=== PATIENT | female | born 1995 | race African-American/Black ===

== ENCOUNTER 2017-07-07 13:42 | Emergency (ER) | payer OTHER ==
[~2017-07-07 13:42] MED LIST: PREN1CAP12 PO
--- NOTE | 2017-07-07 14:30 | PD ---
HPI Chief Complaint Wants to be induced Date Seen: Jul 07, 2017 Time Seen: 14:00 (Juliocesar Ryan MD R2) Travel History International Travel<30 Days: No Contact w/Intl Traveler<30Days: No Known Affected Area: No (Juliocesar Ryan MD R2) History of Present Illness HPI Patient is a 22-year-old at 41 weeks and 0 days who presents with a desire to be induced. She gets her care with Mery Toledo. She reports that yesterday, she noticed some small leakage of fluid with spots of liquid in her underwear no big gush of fluid. She denies any contractions, vaginal bleeding. She reports movement. She says within the last week, she had her membranes stripped and had an ultrasound that showed a breech position. Last cervical check showed 2 cm of cervical dilation. Para: 2 : 3 (Juliocesar Ryan MD R2) History Past Medical History Medical History: Denies Significant Hx (Juliocesar Ryan MD R2) Obstetric History Obstetric History Patient is a . She reports that her first baby was born in 2012 at 40 weeks on December 08, 2012 with a 7 lbs. 10 oz. baby. She reports that her second was a full-term, delivered at 39 weeks and 6 days, vaginal delivery of a 7 lbs. 7 oz. baby girl on September 25, 2014. (Juliocesar Ryan MD R2) Past Surgical History Surgical History: No Previous Surgery (Juliocesar Ryan MD R2) Family History Family History: Negative (Juliocesar Ryan MD) Social History Narrative Social History Patient reports that she lives at home with her daughter. Alcohol Use: No Tobacco Use: Yes (patient reports smoking a quarter pack per day) Substance Abuse: No (Juliocesar Ryan MD R2) Allergies-Medications (Allergen,Severity, Reaction): Coded Allergies: No Known Allergies (Verified , 12/01/16) Home Meds Active Scripts W/O A W/ Fe Asparto G (Prenate Dha 18-0.6-0.4-300 mg)1 Cap Cap1 Cap PO DAILY #90 BOTTLE Ref 3 Prov:KyleBetzy CNM [employer] 12/01/16 Review of Systems General / Constitutional: No: Fever, Weight Gain, Chills, Other Eyes: No: Diploplia, Blurred Vision, Visual changes, Pain, Photophobia HENT: No: Headaches, Vertigo, Lightheadedness Cardiovascular: No: Irregular Rhythm, Chest Pain or Discomfort, Palpitations, Tachycardia, Syncope, Varicosities, Edema, Cyanosis Respiratory: No: Cough, Short of Breath, Other Gastrointestinal: No: Nausea, Vomiting, Diarrhea Genitourinary: No: Decreased Urinary Output, Oliguria Musculoskeletal: No: Limited ROM, Weakness, Cramping, Edema, Pain (Juliocesar Ryan MD R2) Physical Exam 137/76, 91, 98.3 Narrative GENERAL: Well-nourished, well-developed patient. SKIN: Warm and dry. HEAD: Normocephalic and atraumatic. EYES: No scleral icterus. No injection or drainage. ENT: No nasal drainage noted. Mucous membranes pink. Airway patent. NECK: Supple, trachea midline. No JVD. CARDIOVASCULAR: Regular rate and rhythm without murmurs, gallops, or rubs. RESPIRATORY: Breath sounds equal bilaterally. No accessory muscle use. ABDOMEN/GI: Abdomen soft, non-tender, bowel sounds present, no rebound, no guarding Gravid to 41 weeks size GENITOURINARY: External Genitalia: intact and normal in appearance Cervix: midposition Dilatation: 2cm Effacement: 50% Station: -2 Presentation: vertex, confirmed by bedside ultrasound Membranes: Intact Uterine Contractions: q3min FHT's: Category: Cat I Baseline: 140 Reactive: Reactive Variability: moderate Decels: none EXTREMITIES: No cyanosis or edema. BACK: Nontender without obvious deformity. NEUROLOGICAL: Awake and alert. Motor and sensory grossly within normal limits. Five out of 5 muscle strength in all muscle groups. Normal speech. (Juliocesar Ryan MD R2) Data Data Vital Signs Reviewed: Yes (Juliocesar Ryan MD R2) MDM Plan Patient is a 22-year-old at 41 weeks and 0 days who presents with a desire to be induced. Patient reported a small leakage of fluid, but was Amnisure negative. She had a recent ultrasound which showed breech position, but bedside ultrasound shows the baby is in vertex position. Last cervical check showed 2 cm dilation, per patient. Tocometry shows irregular contractions. 1. rule out labor - Amnisure negative, baby in vertex position. Cervical check shows 2 cm dilation 50% effacement, which is unchanged since last cervical check. Tocometry shows irregular contractions. Monitor vitals, labor status, heart rate, all reassuring Scheduled patient for induction of labor this coming Monday labs remarkable for last hemoglobin of 8.4 on 07/03/17 as well as GBS positive at that time; all other labs appear normal. s/d/w Dr. Loco (Juliocesar Ryan MD R2) Interpretation(s) Pt is not in labor. She is 41 weeks with Cat 1 FHR. Largest vertical pocket amniotic fluid pool measuring 6.1cm Plan is for discharge and to return for IOL 07-10-2017 Labor precautions reviewed (Reji Loco MD) Diagnosis Diagnosis: Primary Impression: Irregular contractions Additional Impressions: False labor False labor after 37 completed weeks of gestation False labor after 37 weeks of gestation without delivery False labor, antepartum Ruled Out: Amniotic fluid leaking Disposition: 01 DISCHARGE HOME Condition: Good Juliocesar Ryan MD R2 Jul 07, 2017 14:30 Reji Loco MD Jul 07, 2017 15:35
[2017-07-07 14:33] VITALS: BP 137/76; PULSE 91; RESP 20; TEMP 98.3
== END 2017-07-07 15:27 | disposition home or self-care (01) ==
LOC: HOBED 13:42
DX: O47.1 False labor at or after 37 completed weeks of gestation (principal); O99.333 Smoking (tobacco) complicating pregnancy, third trimester; Z3A.41 41 weeks gestation of pregnancy
CPT/HCPCS: 76815; 84112

== ENCOUNTER 2017-07-10 04:43 | Inpatient (IN) | payer OTHER ==
[~2017-07-10] VITALS: Ht 162.6 cm; Wt 83.9 kg
[2017-07-10] VITALS (131 sets, daily range): BP systolic 107–147; BP diastolic 42–107; PULSE 76–95; RESP 17–19; TEMP 97.5–98.3
[2017-07-10] MEDS ORDERED: PENICILLIN G POT 5,000,000 UNITS/NS 100 ML (Mini-Bag Plus) IV ONE ×2 (05:00)
[2017-07-10] MEDS ORDERED: LIDOCAINE HCL 1% 50 ML VIAL INFIL PRN (05:00)
[2017-07-10] MEDS ORDERED: LIDOCAINE HCL 1% 50 ML VIAL I-DERMAL PRN (05:00)
[2017-07-10] MEDS ORDERED: CITRIC ACID-SODIUM CITRATE LIQ 30 ML UDC PO SCH (05:00)
[2017-07-10] MEDS ORDERED: LACTATED RINGER'S 1000 ML IV SCH (05:00)
[2017-07-10] MEDS ORDERED: NS 500 ML BOLUS IV PRN (05:00)
[2017-07-10] MEDS ORDERED: NS 1000 ML IV PRN (05:00)
[2017-07-10] MEDS ORDERED: MINERAL OIL 10 ML VIAL TOPICAL PRN (05:00)
[2017-07-10] MEDS ORDERED: OXYTOCIN 30 UNITS 500ML PREMIX IV ONE (05:00)
[2017-07-10] MEDS ORDERED: LACTATED RINGER'S 1000 ML BOLUS IV PRN (05:00)
[2017-07-10] MEDS ORDERED: MISOPROSTOL 25 MCG SUPP - repeat dose VAGINAL PRN (05:15)
[2017-07-10] MEDS ORDERED: MISOPROSTOL 25 MCG SUPP VAGINAL ONE (05:15)
[2017-07-10 05:31] LABS: AUTOMATED NEUTROPHIL # 6.3 TH/MM3 (1.8-7.7); BASOPHIL % 0.3 % (0.0-2.0); EOSINOPHIL # 0.2 TH/MM3 (0-0.4); EOSINOPHIL % 2.3 % (0.0-4.0); HEMATOCRIT 26.3 % (35.0-46.0); HEMO FLAGS DIFF FINAL; LYMPH % 19.1 % (9.0-44.0); LYMPHOCYTE # 1.7 TH/MM3 (1.0-4.8); MEAN CELL VOLUME 83.6 FL (80.0-100.0); MEAN CORPUSCULAR HEMOGLOBIN 27.9 PG (27.0-34.0); MEAN CORPUSCULAR HGB CONC 33.3 % (32.0-36.0); MONO % 6.3 % (0.0-8.0); PLATELET COUNT 271 TH/MM3 (150-450); RED BLOOD COUNT 3.14 MIL/MM3 (4.00-5.30); RED CELL DISTRIBUTION WIDTH 14.9 % (11.6-17.2); WHITE BLOOD COUNT 8.8 TH/MM3 (4.0-11.0)
[2017-07-10 05:39] LABS: BACTERIA, URINE OCC /hpf; BLOOD, URINE NEG (NEG); GLUCOSE,URINE NEG (NEG); KETONE, URINE NEG (NEG); MUCUS URINE MANY /lpf (OCC); NITRITE,URINE NEG (NEG); SQUAMOUS EPITHELIAL CELL URINE 6 /hpf (0-5); URINE COLOR YELLOW (YELLW/STRAW)
[2017-07-10 05:41] LABS: COMMENT (UR) CULT NOT INDICATED; CULTURE IF INDICATED CULT NOT INDICATED
[2017-07-10] MEDS ORDERED: OXYTOCIN 30 UNITS/NS 500ML PREMIX IV SCH ×2 (05:45→10:30)
[2017-07-10 06:51] LABS: ALT (GPT) 11 U/L (9-42); ANION GAP 9 MEQ/L (5-15); AST (GOT) 9 U/L (16-38); BICARBONATE 21.9 MEQ/L (21.0-32.0); BLOOD UREA NITROGEN 5 MG/DL (7-18); CHLORIDE 105 MEQ/L (98-107); GLOMERULAR FILTRATION RATE 261 ML/MIN (>89); POTASSIUM 3.5 MEQ/L (3.5-5.1); SODIUM (NA) 136 MEQ/L (136-145)
[2017-07-10 06:54] LABS: ALKALINE PHOSPHATASE 236 U/L (45-117); TOTAL BILIRUBIN ADULT 0.2 MG/DL (0.2-1.0)
[2017-07-10] MEDS ORDERED: fentaNYL 2MCG-BUPIV 0.125% INJ 100 ML ONE (09:38)
--- NOTE | 2017-07-10 10:00 | HHI.HP ---
HPI Chief Complaint Induction of labor Date Seen: Jul 10, 2017 (Keesha Murillo MD, R3) Travel History International Travel<30 Days: No Contact w/Intl Traveler<30Days: No (Keesha Murillo MD, R3) History of Present Illness HPI Patient is a 22 year old at 41-2/7 weeks gestation who presents today for induction of labor. She denies any vaginal bleeding or discharge. No contractions. No gush or leaking of fluid. Positive movement. Poorly compliant with care. (Keesha Murillo MD, R3) History Past Medical History Medical History: Denies Significant Hx (Keesha Murillo MD, R3) Obstetric History Obstetric History s/p x 2 (Keesha Murillo MD, R3) Past Surgical History Surgical History: No Previous Surgery (Keesha Murillo MD, R3) Family History Family History: Negative (Keesha Murillo MD, R3) Social History Alcohol Use: No Tobacco Use: No Substance Abuse: No (Keesha Murillo MD, R3) Allergies-Medications (Allergen,Severity, Reaction): Coded Allergies: No Known Allergies (Verified , 12/01/16) Home Meds Active Scripts W/O A W/ Fe Asparto G (Prenate Dha 18-0.6-0.4-300 mg)1 Cap Cap1 Cap PO DAILY #90 BOTTLE Ref 3 Prov:Betzy Kyle CNM [employer] 12/01/16 Review of Systems Except as stated in HPI: all other systems reviewed are Neg General / Constitutional: No: Fever, Chills Eyes: No: Visual changes HENT: No: Headaches Cardiovascular: No: Chest Pain or Discomfort Respiratory: No: Short of Breath Gastrointestinal: No: Nausea, Vomiting Genitourinary: No: Dysuria, Pelvic Pain, Discharge, Vaginal Bleeding Musculoskeletal: No: Edema Psychiatric: No: Substance Abuse (Keesha Murillo MD, R3) Physical Exam Vital Signs Date Time Temp Pulse Resp B/P Pulse Ox O2 Delivery O2 Flow Rate FiO2 07/10/17 09:55 81 07/10/17 09:50 79 07/10/17 09:50 76 129/97 07/10/17 09:47 81 133/88 07/10/17 09:45 76 8/14/17 09:45 77 14/17 09:43 77 118/82 814/17 09:40 78 814/17 09:35 80 814/17 09:30 80 814/17 08:59 97.9 18 814/17 08:58 80 114/73 14/17 08:50 87 14/17 08:45 80 1417 08:40 84 1417 08:35 85 1417 08:25 92 1417 08:20 86 1417 08:15 87 14 08:10 86 07/10/17 08:05 84 07/10/17 08:00 82 14 07:55 85 1417 07:54 90 135/87 1417 07:53 18 1417 07:50 93 14/17 07:45 81 1417 07:40 81 1417 07:35 80 1417 07:30 80 1417 07:25 80 14/17 07:20 81 14/17 07:10 81 14/17 07:05 79 1417 07:03 97.8 18 1417 07:02 79 123/72 14/17 07:00 78 14/17 06:55 77 14/17 06:45 82 14/17 06:40 81 1417 06:35 81 1417 06:30 81 1417 06:25 79 1417 06:20 80 14/17 06:16 82 119/66 14/17 06:16 18 14/17 06:15 78 14/17 06:10 80 14/17 06:05 81 1417 06:00 80 1417 05:55 80 14/17 05:50 78 14/17 05:45 79 14/17 05:35 81 14/17 05:30 82 14/17 05:25 84 14/17 05:20 80 14/17 05:15 83 8/14/17 05:10 82 07/10/17 05:05 84 07/10/17 05:00 83 07/10/17 05:00 90 144/77 07/10/17 04:59 97.5 18 07/10/17 04:55 83 Narrative GENERAL: Well-nourished, well-developed patient. SKIN: Warm and dry. HEAD: Normocephalic and atraumatic. EYES: No scleral icterus. No injection or drainage. ENT: No nasal drainage noted. Mucous membranes pink. Airway patent. NECK: Supple, trachea midline. No JVD. CARDIOVASCULAR: Regular rate and rhythm without murmurs, gallops, or rubs. RESPIRATORY: Breath sounds equal bilaterally. No accessory muscle use. ABDOMEN/GI: Abdomen soft, non-tender, bowel sounds present, no rebound, no guarding Gravid to 41 weeks size GENITOURINARY: External Genitalia: intact and normal in appearance BUS glands: normal Cervix: position Dilatation: 3 Effacement: 70 Station: -2 Presentation: vertex Membranes: intact Uterine Contractions: irregular FHT's: Category: I Baseline: 140 Reactive: + Variability: moderate Decels: none EXTREMITIES: No cyanosis or edema. BACK: Nontender without obvious deformity. No CVA tenderness. NEUROLOGICAL: Awake and alert. Motor and sensory grossly within normal limits. Normal speech. (Keesha Murillo MD, R3) Data Data Vital Signs Reviewed: Yes Orders Admit To Inpatient (07/10/17 ) Vital Signs (Adult) .Per protocol (07/10/17 04:54) Activity Oob Ad Lizett (07/10/17 04:54) Heart (07/10/17 04:54) Amnioinfusion (07/10/17 04:54) Urinary Catheter Management .ONCE (07/10/17 04:54) Diet Liquid (07/10/17 Breakfast) Complete Blood Count With Diff (07/10/17 04:54) Hold Clot (07/10/17 04:54) Abo/Rh Blood Type (07/10/17 04:54) Urinalysis - C+S If Indicated (07/10/17 04:54) Rapid Plasma Regin (Rpr) W Ttr (07/10/17 04:54) Resp Oxygen Non Rebreathe Mask (07/10/17 ) ^ Epidural / Intrathecal Infus (07/10/17 04:54) Lactated Ringer's 1000 Ml Inj (Lr 1000 M (07/10/17 05:00) Lactated Ringer's 1000 Ml Inj (Lr 1000 M (07/10/17 05:00) Sodium Chlorid 0.9% 500 Ml Inj (Ns 500 M (07/10/17 05:00) Sodium Chlor 0.9% 1000 Ml Inj (Ns 1000 M (07/10/17 05:00) Lidocaine 1% Inj (50 Ml) (Xylocaine 1% I (07/10/17 05:00) Citric Acid-Sodium Citrate Liq (Bicitra (07/10/17 05:00) Fentanyl Inj (Fentanyl Inj) (07/10/17 05:00) Fentanyl Inj (Fentanyl Inj) (07/10/17 05:00) Penicillin G Potassium Inj (Pfizerpen-G (07/10/17 05:00) Penicillin G Potassium Inj (Pfizerpen-G (07/10/17 09:00) Oxytocin 30 Units-500ml Premix (Pitocin (07/10/17 05:00) Lidocaine 1% Inj (50 Ml) (Xylocaine 1% I (07/10/17 05:00) Light Mineral Oil (Muri-Lube Oil) (07/10/17 05:00) ^ Non Stress Test (07/10/17 05:01) Response To Medication .Post New Med Administration, Reaction (07/10/17 05:01) ^ Discontinue Medication (07/10/17 05:01) Oxytocin 30 Units-500ml Premix (Pitocin (07/10/17 05:45) Comprehensive Metabolic Panel (07/10/17 05:42) Fentanyl 2mcg-Bupiv 0.125% Inj (Fentanyl (07/10/17 09:38) Labs Laboratory Tests Test 07/10/17 07/10/17 04:57 05:07 Urine Color YELLOW Urine Turbidity HAZY Urine pH 7.0 Urine Specific Murphy 1.030 Urine Protein 30 Urine Glucose (UA) NEG Urine Ketones NEG Urine Occult Blood NEG Urine Nitrite NEG Urine Bilirubin NEG Urine Urobilinogen 2.0 Urine Leukocyte Esterase MOD Urine RBC 1 Urine WBC 2 Urine Squamous Epithelial 6 Cells Urine Bacteria OCC Urine Mucus MANY Microscopic Urinalysis Comment CULT NOT INDICATED White Blood Count 8.8 Red Blood Count 3.14 Hemoglobin 8.8 Hematocrit 26.3 Mean Corpuscular Volume 83.6 Mean Corpuscular Hemoglobin 27.9 Mean Corpuscular Hemoglobin 33.3 Concent Red Cell Distribution Width 14.9 Platelet Count 271 Mean Platelet Volume 8.2 Neutrophils (%) (Auto) 72.0 Lymphocytes (%) (Auto) 19.1 Monocytes (%) (Auto) 6.3 Eosinophils (%) (Auto) 2.3 Basophils (%) (Auto) 0.3 Neutrophils # (Auto) 6.3 Lymphocytes # (Auto) 1.7 Monocytes # (Auto) 0.6 Eosinophils # (Auto) 0.2 Basophils # (Auto) 0.0 CBC Comment DIFF FINAL Differential Comment Sodium Level 136 Potassium Level 3.5 Chloride Level 105 Carbon Dioxide Level 21.9 Anion Gap 9 Blood Urea Nitrogen 5 Creatinine 0.38 Estimat Glomerular Filtration 261 Rate Random Glucose 93 Calcium Level 8.2 Total Bilirubin 0.2 Aspartate Amino Transf 9 (AST/SGOT) Alanine Aminotransferase 11 (ALT/SGPT) Alkaline Phosphatase 236 Total Protein 7.2 Albumin 2.7 Blood Type O POSITIVE Band and Hold (Keesha Murillo MD, R3) Assessment/Plan Assessment and Plan 31 year old at 41-2/7 weeks gestation. 1. IUP- Category I tracing, reassuring. 2. IOL post-dates- initiate Pitocin. 3. GBS positive- penicillin per protocol. sdw Dr. Taveras and Dr. Hackett R1 (Keesha Murillo MD, R3) Collaborating MD Comments Patient seen and evalauted for admission and induction of labor at 41+ weeks gestation. (Buffy Taveras MD) Keesha Murillo MD, R3 Jul 10, 2017 10:00 Buffy Taveras MD Jul 11, 2017 11:05
--- NOTE | 2017-07-10 10:02 | PD.LABORPN ---
Subjective Subjective Patient resting in bed comfortably. Objective Vital Signs Vital Signs Date Time Temp Pulse Resp B/P Pulse Ox O2 Delivery O2 Flow Rate FiO2 07/10/17 09:55 81 07/10/17 09:50 79 07/10/17 09:50 76 129/97 07/10/17 09:47 81 133/88 07/10/17 09:45 76 07/10/17 09:45 77 07/10/17 09:43 77 118/82 07/10/17 09:40 78 07/10/17 09:35 80 07/10/17 09:30 80 07/10/17 08:59 97.9 18 07/10/17 08:58 80 114/73 07/10/17 08:50 87 07/10/17 08:45 80 07/10/17 08:40 84 07/10/17 08:35 85 07/10/17 08:25 92 07/10/17 08:20 86 07/10/17 08:15 87 07/10/17 08:10 86 07/10/17 08:05 84 07/10/17 08:00 82 07/10/17 07:55 85 07/10/17 07:54 90 135/87 07/10/17 07:53 18 07/10/17 07:50 93 07/10/17 07:45 81 07/10/17 07:40 81 07/10/17 07:35 80 07/10/17 07:30 80 07/10/17 07:25 80 07/10/17 07:20 81 07/10/17 07:10 81 07/10/17 07:05 79 07/10/17 07:03 97.8 18 07/10/17 07:02 79 123/72 07/10/17 07:00 78 07/10/17 06:55 77 07/10/17 06:45 82 07/10/17 06:40 81 07/10/17 06:35 81 07/10/17 06:30 81 07/10/17 06:25 79 07/10/17 06:20 80 07/10/17 06:16 82 119/66 07/10/17 06:16 18 07/10/17 06:15 78 07/10/17 06:10 80 07/10/17 06:05 81 07/10/17 06:00 80 8/14/17 05:55 80 07/10/17 05:50 78 07/10/17 05:45 79 07/10/17 05:35 81 07/10/17 05:30 82 07/10/17 05:25 84 07/10/17 05:20 80 07/10/17 05:15 83 07/10/17 05:10 82 07/10/17 05:05 84 07/10/17 05:00 83 07/10/17 05:00 90 144/77 07/10/17 04:59 97.5 18 07/10/17 04:55 83 Objective Pelvic Exam: Cervix: posterior Dilatation: 3-4 Effacement: 70 Station: -2 Presentation: vertex Membranes: AROM, clear fluid Uterine Contractions: q2min FHT's: Category: I Baseline: 130 Reactive: + Variability: moderate Decels: none Assessment/Plan Assessment and Plan 31 year old at 41-2/7 weeks gestation. 1. IUP- Category I tracing, reassuring. 2. IOL post-dates- Pitocin, AROM with clear fluid. 3. GBS positive- penicillin per protocol. sdw Dr. Taveras and Dr. Hackett R1 Keesha Murillo MD, R3 Jul 10, 2017 10:02
[2017-07-10] MEDS: PENICILLIN G POT 2,500,000 UNITS/NS 100 ML IV SCH ×4 (10:06→13:34)
[2017-07-10 10:41] LABS: RAPID PLASMA REAGIN SCREEN NON-REACTIVE (NON-REACTVE)
[2017-07-10] MEDS ORDERED: NO SYSTEM NARCOTICS PRN (10:45)
[2017-07-10] MEDS ORDERED: DO NOT ADMINISTER ANTICOAGULANTS PRN (10:45)
[2017-07-10] MEDS ORDERED: ePHEDrine/NS 25 MG/5 ML SYR IV PRN (10:45)
[2017-07-10] MEDS ORDERED: fentaNYL 2MCG-BUPIV 0.125% 100 ML EPIDURAL SCH (10:45)
--- NOTE | 2017-07-10 14:15 | PD.LABORPN ---
Subjective Subjective Patient resting comfortably in bed. No current complaints Objective Vital Signs Vital Signs Date Time Temp Pulse Resp B/P Pulse Ox O2 Delivery O2 Flow Rate FiO2 07/10/17 14:00 88 07/10/17 14:00 76 112/75 07/10/17 13:55 76 07/10/17 13:50 78 07/10/17 13:45 77 07/10/17 13:40 79 07/10/17 13:36 80 121/77 07/10/17 13:36 97.7 18 07/10/17 13:35 80 07/10/17 13:00 78 112/60 07/10/17 12:54 18 07/10/17 12:30 76 123/78 07/10/17 12:08 17 07/10/17 12:01 83 119/42 07/10/17 11:30 78 115/62 07/10/17 11:25 97.9 07/10/17 11:25 18 07/10/17 11:00 81 129/77 07/10/17 10:55 83 07/10/17 10:50 83 07/10/17 10:46 79 128/84 07/10/17 10:45 81 07/10/17 10:40 84 07/10/17 10:35 80 07/10/17 10:30 86 07/10/17 10:30 84 133/84 07/10/17 10:25 86 07/10/17 10:23 18 07/10/17 10:20 82 07/10/17 10:20 86 131/72 07/10/17 10:15 89 07/10/17 10:15 82 07/10/17 10:15 88 124/74 07/10/17 10:11 88 107/66 07/10/17 10:10 91 07/10/17 10:10 90 07/10/17 10:07 18 07/10/17 10:05 91 07/10/17 10:05 90 07/10/17 10:05 89 131/75 07/10/17 10:00 90 07/10/17 10:00 87 07/10/17 10:00 88 126/72 07/10/17 09:56 18 07/10/17 09:55 80 128/79 07/10/17 09:55 88 07/10/17 09:55 81 8/14/17 09:54 81 133/81 14/17 09:50 79 1417 09:50 76 129/97 14/17 09:50 80 14/17 09:47 81 133/88 14/17 09:45 76 14/17 09:45 77 14/17 09:43 77 118/82 14/17 09:40 78 1417 09:35 80 1417 09:30 80 14/17 09:25 81 14/17 09:20 78 1417 09:15 79 1417 09:10 82 1417 09:05 77 07/10/17 09:00 78 17 08:59 97.9 18 14/17 08:58 80 114/73 14/17 08:50 87 1417 08:45 80 1417 08:40 84 1417 08:35 85 1417 08:25 92 14/17 08:20 86 14/17 08:15 87 14 08:10 86 1417 08:05 84 1417 08:00 82 1417 07:55 85 1417 07:54 90 135/87 14/17 07:53 18 14/17 07:50 93 14/17 07:45 81 14/17 07:40 81 14/17 07:35 80 1417 07:30 80 14/17 07:25 80 14/17 07:20 81 14/17 07:10 81 14/17 07:05 79 14/17 07:03 97.8 18 14/17 07:02 79 123/72 14/17 07:00 78 14/17 06:55 77 14/17 06:45 82 14/17 06:40 81 14/17 06:35 81 14/17 06:30 81 14/17 06:25 79 14/17 06:20 80 14/17 06:16 82 119/66 07/10/17 06:16 18 07/10/17 06:15 78 07/10/17 06:10 80 Objective Pelvic Exam: Cervix: Posterior Dilatation: 6-7 Effacement: 90 Station: -2 Presentation: Vertex Membranes: AROM, clear Uterine Contractions: Every 2 minutes FHT's: Category: 1 Baseline: 130 Reactive: Yes Variability: moderate Decels: None Assessment/Plan Assessment and Plan 22 year old at 41-2/7 weeks gestation. 1. IUP- Category I tracing, reassuring. 2. IOL post-dates- Pitocin, AROM with clear fluid. 3. GBS positive- penicillin per protocol. D/W Dr. Murillo and Juliocesar Way MD R1 Jul 10, 2017 14:15
[2017-07-10] MEDS ORDERED: TERBUTALINE INJ 1 MG/ML AMP ONE (14:59)
[2017-07-10] MEDS ORDERED: SODIUM CHLORIDE 0.9% FLUSH 10 ML FLUSH IV FLUSH PRN (17:15)
[2017-07-10] MEDS ORDERED: ONDANSETRON ODT 4 MG TAB PO PRN (17:15)
[2017-07-10] MEDS ORDERED: DOCUSATE SODIUM 50 MG/SENNA 8.6 MG TAB PO PRN (17:15)
[2017-07-10] MEDS ORDERED: oxyCODONE/ACETAMINOPHEN 5 MG/325 MG TAB PO PRN (17:15)
[2017-07-10] MEDS ORDERED: BENZOCAINE 20% TOPICAL SPRAY 60 ML CAN TOPICAL PRN (17:15)
[2017-07-10] MEDS ORDERED: WITCH HAZEL 50%/GLYCERIN 12.5% 40 PAD JAR TOPICAL PRN (17:15)
[2017-07-10] MEDS ORDERED: OXYTOCIN 30 UNITS-500ML PREMIX 500 ML IV SCH (17:15)
[2017-07-10] MEDS ORDERED: ALUMINUM/MAGNESIUM/SIMETH 30 ML CUP PO PRN (17:15)
--- NOTE | 2017-07-10 17:19 | PD.OB.DELI ---
Delivery Date: Jul 10, 2017 Anesthesia: Epidural Episiotomy: None Vaginal Delivery: Normal Presentation: Occiput posterior Nuchal Cord: x1 Delayed cord clamping (45 sec): Yes Infant: Female, Single One Minute : 9 Five Minute : 9 Weight: 3265 g Placenta: Spontaneous delivery, Intact, 3 vessel cord Laceration: No lacerations Estimated blood loss: 250 ml Additional Information Supervised by Dr. Tamayo, Juliocesar Muñiz MD Jul 10, 2017 17:19
[2017-07-10] MEDS: IBUPROFEN 600 MG TAB PO PRN (19:25)
[2017-07-10] MEDS ORDERED: MEASLES, MUMPS, RUBELLA VACCINE 0.5 ML VIAL SQ ONE (20:00)
[2017-07-10] MEDS ORDERED: DIPHTH/TETANUS/ACEL PERTUSSIS (BOOSTER) 0.5 ML VIAL/PFS IM ONE (20:00)
[2017-07-10] MEDS ORDERED: SODIUM CHLORIDE 0.9% FLUSH 10 ML FLUSH IV FLUSH SCH (21:00)
[2017-07-10] MEDS ORDERED: ZOLPIDEM TARTRATE 5 MG TAB PO PRN (21:00)
[2017-07-11] VITALS: RESP 18
[2017-07-11 01:00] VITALS: RESP 18
[2017-07-11 02:00] VITALS: RESP 18
[2017-07-11] MEDS: ACETAMINOPHEN 325 MG TAB PO PRN ×3 (04:00→21:31)
[2017-07-11] MEDS: IBUPROFEN 600 MG TAB PO PRN ×3 (04:00→21:31)
[2017-07-11 08:00] VITALS: BP 149/76; PULSE 74; RESP 16; TEMP 97.9
--- NOTE | 2017-07-11 09:12 | HHI.OB ---
Subjective Post Day: 1 Remarks day # 1, AFVSS overnight. States sustained lochia. Denies dysuria. No breast tenderness. She is feeding the baby via formula. Appetite good. No nausea or vomiting. Positive flatus/bowel movement. Ambulating well. Denies calf pain or shortness of breath. Otherwise, she is doing well this morning and has no other complaints. Objective Vitals/I&O Vital Signs Date Time Temp Pulse Resp B/P Pulse Ox O2 Delivery O2 Flow Rate FiO2 07/11/17 02:00 18 07/11/17 01:00 18 07/11/17 00:00 18 07/10/17 23:00 18 07/10/17 22:00 18 07/10/17 21:00 18 07/10/17 20:25 18 07/10/17 20:00 18 07/10/17 19:00 97.5 88 18 07/10/17 19:00 147/89 07/10/17 18:33 98.1 07/10/17 18:33 86 18 135/88 07/10/17 18:15 18 07/10/17 18:06 90 143/89 07/10/17 18:00 18 07/10/17 17:46 88 140/85 07/10/17 17:44 81 132/90 07/10/17 17:44 98.2 07/10/17 17:38 18 07/10/17 17:17 95 130/82 07/10/17 17:17 18 07/10/17 16:28 98.3 07/10/17 16:14 18 07/10/17 16:00 87 127/66 07/10/17 15:31 93 124/65 07/10/17 15:15 88 07/10/17 15:15 19 07/10/17 15:10 84 121/81 07/10/17 15:10 88 07/10/17 15:05 78 07/10/17 15:00 88 128/107 07/10/17 14:55 84 07/10/17 14:50 85 07/10/17 14:45 76 07/10/17 14:40 85 07/10/17 14:35 83 07/10/17 14:31 18 07/10/17 14:30 81 07/10/17 14:30 81 121/74 8/14/17 14:25 84 814/17 14:20 84 14/17 14:15 81 14/17 14:10 91 14/17 14:05 84 1417 14:00 88 14/17 14:00 76 112/75 14/17 13:55 76 14/17 13:50 78 14/17 13:45 77 14/17 13:40 79 14/17 13:36 80 121/77 14/17 13:36 97.7 18 14/17 13:35 80 14/17 13:00 78 112/60 14/17 12:54 18 14/17 12:30 76 123/78 14/17 12:08 17 17 12:01 83 119/42 14/17 11:30 78 115/62 14/17 11:25 97.9 14/17 11:25 18 14/17 11:00 81 129/77 14/17 10:55 83 14/17 10:50 83 14/17 10:46 79 128/84 14/17 10:45 81 14/17 10:40 84 14/17 10:35 80 14/17 10:30 86 14/17 10:30 84 133/84 14/17 10:25 86 14/17 10:23 18 14/17 10:20 82 14/17 10:20 86 131/72 14/17 10:15 89 14/17 10:15 82 14/17 10:15 88 124/74 14/17 10:11 88 107/66 14/17 10:10 91 14/17 10:10 90 14/17 10:07 18 14/17 10:05 91 14/17 10:05 90 14/17 10:05 89 131/75 14/17 10:00 90 14/17 10:00 87 14/17 10:00 88 126/72 14/17 09:56 18 14/17 09:55 80 128/79 07/10/17 09:55 88 07/10/17 09:55 81 07/10/17 09:54 81 133/81 07/10/17 09:50 79 07/10/17 09:50 76 129/97 07/10/17 09:50 80 07/10/17 09:47 81 133/88 07/10/17 09:45 76 07/10/17 09:45 77 07/10/17 09:43 77 118/82 07/10/17 09:40 78 07/10/17 09:35 80 07/10/17 09:30 80 07/10/17 09:25 81 07/10/17 09:20 78 07/10/17 09:15 79 07/10/17 09:10 82 07/10/17 09:05 77 Objective Remarks GENERAL: Well-nourished, well-developed patient. CARDIOVASCULAR: Regular rate and rhythm without murmurs, gallops, or rubs. RESPIRATORY: Breath sounds equal bilaterally. No accessory muscle use. ABDOMEN/GI: Abdomen soft, non-tender. Fundus: Firm, non-tender at umbilicus. GENITOURINARY: Light to moderate bleeding. EXTREMITIES: No cyanosis or edema, non-tender, without signs of DVT. Medications and IVs Current Medications Medications (Trade) Dose Ordered Sig/Vanessa Route Start Time Stop Time Status Last Admin Lactated Ringer's 1,000 ml @ 125 mls/hr Q8H IV 07/10/17 05:00 07/10/17 05:09 Lactated Ringer's 1,000 ml @ 3,000 mls/hr BOLUS PRN IV 07/10/17 05:00 Sodium Chloride 500 ml @ 1,000 mls/hr BOLUS PRN IV 07/10/17 05:00 Sodium Chloride 1,000 ml @ 100 mls/hr Q10H PRN IV 07/10/17 05:00 (Pfizerpen-G Inj/ NS Inj) 100 ml @ 200 mls/hr Q4H IV 07/10/17 09:00 07/10/17 13:34 Mineral Oil 10 ml 10 ml UNSCH PRN TOPICAL 07/10/17 05:00 (Pitocin 30 Units-NS 500 ml Premix) 500 ml @ 0 mls/hr TITRATE IV 07/10/17 10:30 Miscellaneous Information No systemic narcotics to be given except... UNSCH PRN .XX 07/10/17 10:45 07/11/17 10:44 Miscellaneous Information DO NOT ADMINISTER ANY ANTICOAGUL... UNSCH PRN .XX 07/10/17 10:45 07/11/17 10:44 (fentaNYL 2MCG-BUPIV 0.125% INJ) 100 ml @ 0 mls/hr TITRATE EPIDURAL 07/10/17 10:45 (ePHEDrine/NS 25 MG/5 ML SYR) 10 mg UNSCH PRN IV 07/10/17 10:45 07/11/17 10:44 (NS Flush) 2 ml BID IV FLUSH 07/10/17 21:00 (NS Flush) 2 ml UNSCH PRN IV FLUSH 07/10/17 17:15 (Tylenol) 650 mg Q4H PRN PO 07/10/17 17:15 07/11/17 04:00 (Motrin) 600 mg Q6H PRN PO 07/10/17 17:15 07/11/17 04:00 (Percocet 5-325 Mg) 1 tab Q4H PRN PO 07/10/17 17:15 07/11/17 00:00 (Percocet 5-325 Mg) 2 tab Q4H PRN PO 07/10/17 17:15 (Americaine 20% Top Spr) 1 spray Q4H PRN TOPICAL 07/10/17 17:15 (Tucks Pads) 1 applic QID PRN TOPICAL 07/10/17 17:15 (Mary Lou-Colace) 2 tab Q12H PRN PO 07/10/17 17:15 (Ambien) 5 mg HS PRN PO 07/10/17 21:00 (Mag-Al Plus Susp Liq) 15 ml Q8H PRN PO 07/10/17 17:15 (Zofran Odt) 4 mg Q6H PRN PO 07/10/17 17:15 Assessment/Plan Assessment and Plan 31 year old day 1. - management - Pelvic rest - Motrin and Percocet prn pain - Monitor for change in bleeding. - Wants Nexplanon for control dw Dr. Tamayo and Juliocesar Muñiz MD R1 Jul 11, 2017 09:12
[2017-07-11] MEDS: oxyCODONE/ACETAMINOPHEN 5 MG/325 MG TAB PO PRN ×2 (15:25)
[2017-07-11 19:29] VITALS: BP 117/78; PULSE 60; RESP 16; TEMP 98.1
[2017-07-12] MEDS: ACETAMINOPHEN 325 MG TAB PO PRN (04:29)
[2017-07-12] MEDS: IBUPROFEN 600 MG TAB PO PRN (04:30)
[2017-07-12 08:25] VITALS: BP 138/83; PULSE 64; RESP 16; TEMP 98.5
--- NOTE | 2017-07-12 08:33 | HHI.OB ---
Subjective Post Day: 2 Remarks day # 2 AFVSS overnight. Decreased lochia. Denies dysuria. No breast tenderness. She is feeding the baby via bottle. Appetite good. No nausea or vomiting. Ambulating well. Denies calf pain or shortness of breath. States there is some right sided back pain and pain around where the epidural was placed. Does not feel any palpitations, no difficulty breathing. She can massage the pain away. Otherwise, she is doing well this morning and has no other complaints. (Juliocesar Hackett MD R1) Objective Vitals/I&O Vital Signs Date Time Temp Pulse Resp B/P Pulse Ox O2 Delivery O2 Flow Rate FiO2 07/11/17 19:29 98.1 60 16 117/78 Objective Remarks GENERAL: Well-nourished, well-developed patient. CARDIOVASCULAR: Regular rate and rhythm without murmurs, gallops, or rubs. BACK: Tender to palpation along inferior border of right scapula. Mildly tender around epidural insertion, no erythema, warmth, discoloration, hematoma or other swelling. RESPIRATORY: Breath sounds equal bilaterally. No accessory muscle use. ABDOMEN/GI: Abdomen soft, non-tender. Fundus: Firm, non-tender at umbilicus. GENITOURINARY: Light to moderate bleeding. EXTREMITIES: No cyanosis or edema, non-tender, without signs of DVT. Medications and IVs Current Medications Medications (Trade) Dose Ordered Sig/Vanessa Route Start Time Stop Time Status Last Admin Lactated Ringer's 1,000 ml @ 125 mls/hr Q8H IV 07/10/17 05:00 07/10/17 05:09 Lactated Ringer's 1,000 ml @ 3,000 mls/hr BOLUS PRN IV 07/10/17 05:00 Sodium Chloride 500 ml @ 1,000 mls/hr BOLUS PRN IV 07/10/17 05:00 Sodium Chloride 1,000 ml @ 100 mls/hr Q10H PRN IV 07/10/17 05:00 (Pfizerpen-G Inj/ NS Inj) 100 ml @ 200 mls/hr Q4H IV 07/10/17 09:00 07/10/17 13:34 Mineral Oil 10 ml 10 ml UNSCH PRN TOPICAL 07/10/17 05:00 Oxytocin 500 ml @ 0 mls/hr TITRATE IV 07/10/17 10:30 (fentaNYL 2MCG-BUPIV 0.125% INJ) 100 ml @ 0 mls/hr TITRATE EPIDURAL 07/10/17 10:45 (NS Flush) 2 ml BID IV FLUSH 07/10/17 21:00 (NS Flush) 2 ml UNSCH PRN IV FLUSH 07/10/17 17:15 (Tylenol) 650 mg Q4H PRN PO 07/10/17 17:15 07/12/17 04:29 (Motrin) 600 mg Q6H PRN PO 07/10/17 17:15 07/12/17 04:30 (Percocet 5-325 Mg) 1 tab Q4H PRN PO 07/10/17 17:15 07/11/17 15:25 (Percocet 5-325 Mg) 2 tab Q4H PRN PO 07/10/17 17:15 (Americaine 20% Top Spr) 1 spray Q4H PRN TOPICAL 07/10/17 17:15 (Tucks Pads) 1 applic QID PRN TOPICAL 07/10/17 17:15 (Mary Lou-Colace) 2 tab Q12H PRN PO 07/10/17 17:15 (Ambien) 5 mg HS PRN PO 07/10/17 21:00 (Mag-Al Plus Susp Liq) 15 ml Q8H PRN PO 07/10/17 17:15 (Zofran Odt) 4 mg Q6H PRN PO 07/10/17 17:15 (Juliocesar Hackett MD R1) Assessment/Plan Assessment and Plan 22 y/o female who is PPD# 2 s/p . -Continue routine care. -Percocet and Motrin PRN pain. -Encouraged OOB. Advised pelvic rest for 6 wks. -Re: ctrl, she would like Nexplanon. -D/c today. wdw Dr. Taveras, Dr. Murillo (Juliocesar Hackett MD R1) Collaborating MD Comments Agree with care, management and discharge. (Buffy Taveras MD) Juliocesar Hackett MD R1 Jul 12, 2017 08:33 Buffy Taveras MD Jul 13, 2017 12:04
[2017-07-12] MEDS ORDERED: PERI8.6T PO (09:04)
[2017-07-12] MEDS ORDERED: IBUP-232 PO (09:04)
--- NOTE | 2017-07-12 09:05 | HHI.DCPOC ---
Discharge Care Plan Report Symptoms to Your Doctor -Temperature above 100.5 degrees -Redness, of incision or excessive or foul smelling drainage -Unusual pain or calf pain -Increased vaginal bleeding -Painful or difficulty urinating -Feelings of extreme sadness or anxiety after 2 weeks Goals to Promote Your Health * To prevent worsening of your condition and complications * To maintain your health at the optimal level Directions to Meet Your Goals Take your medications as prescribed Follow your dietary instruction Follow activity as directed Ensure plenty of rest for recovery Drink fluids for hydration Keep your appointments as scheduled Take your immunizations and boosters as scheduled If your symptoms worsen call your PCP, if no PCP go to Urgent Care Center or Emergency Room Smoking is Dangerous to Your Health. Avoid second hand smoke Call the 24-hour crisis hotline for domestic abuse at Juliocesar Hackett MD R1 Jul 12, 2017 09:05
== END 2017-07-12 15:02 | disposition home or self-care (01) | DRG 775 ==
LOC: H2EB 04:43 → H1EA 18:26
PROVIDERS: ADMIT Obstetrics & Gynecology Obstetrics; ATTEND Obstetrics & Gynecology Obstetrics
PROC: 10E0XZZ Delivery of Products of Conception, External Approach (ICD-10-PCS; principal; 2017-07-10)
PROC: 3E033VJ Introduction of Other Hormone into Peripheral Vein, Percutaneous Approach (ICD-10-PCS; 2017-07-10)
PROC: 10907ZC Drainage of Amniotic Fluid, Therapeutic from Products of Conception, Via Natural or Artificial Opening (ICD-10-PCS; 2017-07-10)
PROC: 00HU33Z Insertion of Infusion Device into Spinal Canal, Percutaneous Approach (ICD-10-PCS; 2017-07-10)
PROC: 3E0R3CZ (ICD-10-PCS; 2017-07-10)
DX: O48.0 Post-term pregnancy (principal); O99.824 Streptococcus B carrier state complicating childbirth; Z91.19 Patient's noncompliance with other medical treatment and regimen; O69.81X0 Labor and delivery complicated by cord around neck, without compression, not applicable or unspecified; Z3A.41 41 weeks gestation of pregnancy; Z37.0 Single live birth
CPT/HCPCS: 59025; 80053; 81001; 85025; 86592; 86900; 86901; J2540; J2590; J3010; J3105; J7120